=== PATIENT | female | born 1940 | race African-American/Black ===

== ENCOUNTER 2016-05-17 20:26 | Emergency (ER) | payer OTHER ==
[2016-05-17 20:34] VITALS: BP 148/80
--- NOTE | 2016-05-17 20:41 | PROVIDER DOCUMENTATION ---
HPI-EENT General - General Chief Complaint: Earache Stated Complaint: LT EARACHE, NECK PAIN Time Seen by Provider: 05/17/16 20:40 Source: patient Allergies/Adverse Reactions: Patient Allergies Allergy/AdvReac Type Severity Reaction Status Date / Time No Known Allergies Allergy Verified 05/17/16 20:34 Home Medications: Allopurinol [Zyloprim] 300 mg PO EVERY OTHER DAY 04/02/12 Levothyroxine [Synthroid] 100 microgm PO QAM 04/02/12 Losartan Potassium 100 mg PO QAM 05/03/12 Triamterene/Hctz [Dyazide] 1 each PO DAILY 07/22/15 Bimatoprost [Lumigan] 2.5 ml OP HS 02/26/16 - History of Present Illness-EENT General Nature of Presenting Problem: 75 y/o WF c/o left ear pain that began 3 weeks ago. Has tried Flonase and sonny without relief. Denies change sin hearing or discharge, denies tinnitus , RHODES or dizziness. Denies cough, congestion, runny nose, watery eyes, or difficulty breathing. Pain is throbbing, non radiating, worse with laying down on the left side, no alleviating factors. Review of Systems - Adult - REVIEW OF SYSTEMS - ADULT Constitutional: reports: no symptoms reported. denies: chills, fever, fatique Eyes: reports: no symptoms reported. denies: blurred vision, double vision, eye pain Ears, Nose, Mouth & Throat: reports: see HPI, ear pain. denies: ear discharge, hearing loss, tinnitus, sinus problem, nose pain, throat pain Cardiovascular: reports: no symptoms reported. denies: chest pain Respiratory: reports: no symptoms reported. denies: cough, shortness of breath Gastrointestinal: reports: no symptoms reported. denies: abdominal pain, diarrhea, nausea, vomiting Genitourinary: reports: no symptoms reported. denies: dysuria, discharge, frequency, incontinence Musculoskeletal: reports: no symptoms reported. denies: muscle aches Integumentary: reports: no symptoms reported. denies: rash Neurological: reports: no symptoms reported. denies: headache/migraines Psychiatric: reports: no symptoms reported Endocrine: reports: no symptoms reported Hematologic/Lymphatic: reports: no symptoms reported Allergic/Immunologic: reports: no symptoms reported All Other Systems: Reviewed and Negative Past History - Adult - PAST MEDICAL HISTORY-ADULT Review of Records: reports: Old Records Reviewed, Nursing Assessment Review, Medications Reviewed, Social history reviewed & non-contributory. Major Childhood Illnesses: reports: denies history Cardiovascular: reports: HTN Respiratory: reports: denies history Gastrointestinal: reports: denies history Obstetrical/Gynecological: reports: denies history Genitourinary: reports: kidney disease Musculoskeletal: reports: arthritis, other (rotator cuff ) Neurological: reports: denies history Psychiatric: reports: denies history Endocrine/Immune: reports: denies history Other Conditions: reports: denies history - PRIOR SURGERIES/PROCEDURES Surgical/Procedure History: reports: cholecystectomy - PRIOR HOSPITALIZATIONS Prior Hospitalizations: reports: other (none recent) - IMMUNIZATION STATUS Childhood Immunizations: See Nurse Assessment Flu Vaccine: See Nurse Assessment - FAMILY HISTORY Family History: reviewed, not pertinent - SOCIAL HISTORY Smoking: denies Substance Use: none/never Alcohol Use Frequency: never Physical Exam- EENT - Physical Exam EENT Initial Vital Signs Reviewed: Yes General Appearance: appears well, alert, no apparent distress Eye Exam: bilateral eye: normal inspection, PERRL, EOMI Ear Exam: right ear: canal normal, left ear: TM red, bilateral ear: auricle normal Nasal Exam: normal inspection Throat Exam: normal mouth inspection, pharynx normal. negative: tonsillar exudate, tonsillar swelling Neck: non-tender, full range of motion, supple, normal inspection. negative: lymphadenopathy Respiratory: chest non-tender, lungs clear, normal breath sounds, no pleuratic chest pain, no respiratory distress, no accessory muscle use. negative: respiratory distress, decreased breath sounds, accessory muscle use, crackles, rales, rhonchi, wheezing Cardiovascular: normal peripheral pulses, regular rate, rhythm, no edema, no gallop, no JVD, no murmur Lymphatic: no adenopathy Extremity: normal gait Integumentary: normal color, normal turgor, warm/dry Neurologic: grossly normal, no motor/sensory deficits Psych/Mental Status: AL, normal mood/affect, normal thought content, normal thought process, oriented x 3 Progress - PLAN OF CARE/RESULTS Progress/Plan/Lab Results: Vital Signs Temp Pulse Resp BP Pulse Ox 05/17/16 20:31 97.6 F 69 16 148/80 100 No Known Allergies Allergy (Verified 05/17/16 20:34) Allopurinol [Zyloprim] 300 mg PO EVERY OTHER DAY 04/02/12 Levothyroxine [Synthroid] 100 microgm PO QAM 04/02/12 Losartan Potassium 100 mg PO QAM 05/03/12 Triamterene/Hctz [Dyazide] 1 each PO DAILY 07/22/15 Multivitamin [Daily Multiple Vitamin] 1 each PO DAILY #30 tablet 07/28/15 Bimatoprost [Lumigan] 2.5 ml OP HS 02/26/16 Amoxicillin [Amoxil] 500 mg PO BID #14 capsule 05/17/16 Orders Category Date Time Status Amoxicillin [Amoxil] Med 05/17/16 20:46 Discontinued 875 mg PO NOW ONE Departure - Departure Time of Disposition Order: 20:46 DIAGNOSIS: Left acute otitis media Disposition: HOME 01 Certified Medical Emergency: Emergent Condition: Stable Additional Instructions: ED Follow Up Instructions: You have been treated by a care provider in the Emergency Department. These instructions are being provided to you so you can have an understanding of how to care for yourself upon discharge. Upon discharge from the Emergency Department, you are responsible for making arrangements for follow-up care by a physician of your choice. Take all prescribed medications as directed. Return to the Emergency Department immediately for any new or worsening symptoms. You may call the Physician Referral phone number at [phone] to obtain a list of Physicians who are taking new patients. Prescriptions: Amoxicillin [Amoxil] 500 mg PO BID #14 capsule Referrals: Mayte Lozano MD [Primary Care Provider] - Attestation - Physician/ Mid-level Attestation Patient care was provided by Mid-level provider (FOOD STYLIST/PA):: Yes Mid-level provider:: Milka Ramirez Mid-level documentation review:: The Mid-level provider documentation, treatment plan and medical decision making was reviewed by the physician who agrees with all treatment and medical decision making by the P.
[2016-05-17] MEDS ORDERED: AMOXIL PO ONE (20:46)
== END 2016-05-17 21:16 | disposition home or self-care (01) ==
LOC: ED 20:26
DX: H66.92 Otitis media, unspecified, left ear (principal); H92.02 Otalgia, left ear; I10 Essential (primary) hypertension; M19.90 Unspecified osteoarthritis, unspecified site; Z79.899 Other long term (current) drug therapy
CPT/HCPCS: 99282